=== PATIENT | male | born 1930 | race Caucasian/White ===

== ENCOUNTER 2016-07-21 15:04 | Outpatient (CLI) | payer MEDICARE | END 2016-07-21 15:05 | disposition home or self-care (01) | DX: I48.91 Unspecified atrial fibrillation (principal) ==

== ENCOUNTER 2016-08-03 12:45 | Outpatient (CLI) | payer MEDICARE | END 2016-08-03 12:46 | disposition home or self-care (01) | DX: I48.2 Chronic atrial fibrillation (principal) ==

== ENCOUNTER 2016-08-27 14:37 | Outpatient (CLI) | payer MEDICARE | END 2016-08-27 14:38 | disposition home or self-care (01) | DX: I48.2 Chronic atrial fibrillation (principal) ==

== ENCOUNTER 2016-09-23 14:52 | Outpatient (CLI) | payer MEDICARE | END 2016-09-23 14:53 | disposition home or self-care (01) | DX: I48.2 Chronic atrial fibrillation (principal) ==

== ENCOUNTER 2016-10-07 14:20 | Outpatient (CLI) | payer MEDICARE | END 2016-10-07 14:21 | disposition home or self-care (01) | DX: I48.2 Chronic atrial fibrillation (principal) ==

== ENCOUNTER 2016-10-08 14:58 | Outpatient (CLI) | payer MEDICARE | END 2016-10-08 14:59 | disposition home or self-care (01) | DX: N18.3 Chronic kidney disease, stage 3 (moderate) (principal) ==

== ENCOUNTER 2016-10-28 08:00 | Outpatient (CLI) | payer MEDICARE | END 2016-10-28 08:01 | DX: I48.2 Chronic atrial fibrillation (principal) ==

== ENCOUNTER 2016-11-13 14:58 | Outpatient (CLI) | payer MEDICARE | END 2016-11-13 14:59 | disposition home or self-care (01) | DX: I48.2 Chronic atrial fibrillation (principal) ==

== ENCOUNTER 2016-12-26 17:30 | Inpatient (IN) | payer MEDICARE ==
[2016-12-26] MEDS ORDERED: SODIUM CHLORIDE 0.9% 500 ML IV ONE (17:52)
[2016-12-26] MEDS ORDERED: SODIUM CHLORIDE 0.9% 1,000 ML IV ONE (17:52)
--- NOTE | 2016-12-26 17:54 | ED Physician Documentation ---
History of Present Illness - Stated complaint Stated Complaint: COUGHING BLOOD - Chief complaint Chief Complaint: General - History obtained from History obtained from: Patient, Family - History of Present Illness Timing: How many days ago (3) Pain level max: 0 Pain level now: 0 Improved by: nothing Worsened by: nothing - Additonal information Additional information: Patient is an 86-year-old male who presents to the emergency department with a cough for the past 3 days. Increasing coughing over the past 24 hours. The last couple of times he coughed he has noticed a small amount of blood in the sputum. He is on warfarin for atrial fibrillation. Last INR check was approximately 3 weeks ago. It was 2.1 at that time. He states he has felt warm and intermittently chilled. He believes that this is related to milk that he drank 3 days ago. Has not had any diarrhea. Did vomit once. Review of Systems Ten Systems: 10 systems reviewed and negative Constitutional: reports: Chills Ears: denies: Ear pain Nose: reports: Rhinorrhea / runny nose, Congestion Throat: denies: Sore throat Respiratory: reports: Cough, Hemoptysis GI: denies: Constipation, Diarrhea, Hematemesis, Bloody / black stool : denies: Dysuria Skin: denies: Rash Musculoskeletal: denies: Neck pain, Back pain Neurologic: denies: Headache PD PAST MEDICAL HISTORY - Past Medical History Past Medical History: Yes Cardiovascular: PR, Atrial fibrillation Endocrine/Autoimmune: HyPOthyroidism - Present Medications Home Medications: Ambulatory Orders Medication Instructions Recorded Confirmed Levothyroxine [Synthroid] 0 mcg PO DAILY 08/21/13 02/14/14 Metoprolol Succinate [Toprol Xl] 0 mg PO TID 08/21/13 02/14/14 Atorvastatin [Lipitor] 5 mg PO DAILY 02/14/14 02/14/14 Warfarin [Coumadin] 5 mg PO DAILY 02/14/14 02/14/14 Allopurinol [Aloprim] 0 mg PO 12/26/16 Famotidine [Pepcid] 1 tab PO DAILY 12/26/16 12/26/16 - Allergies Allergies/Adverse Reactions: Allergies Allergy/AdvReac Type Severity Reaction Status Date / Time amoxicillin [Amoxicillin] AdvReac Intermediate diarrhea Verified 12/26/16 17:39 - Social History Does the pt smoke?: No Smoking Status: Never smoker Does the pt drink ETOH?: No Does the pt have substance abuse?: No - Immunizations Immunizations are current?: Yes PD ED PE NORMAL - Vitals Vital signs reviewed: Yes - General General: Alert and oriented X 3, Well developed/nourished - HEENT HEENT: PERRL, Moist mucous membranes - Neck Neck: Supple, no meningeal sign - Cardiac Cardiac: Other (Irregularly irregular) - Respiratory Respiratory: No respiratory distress, Other (Rhonchi bilaterally) - Abdomen Abdomen: Soft, Non tender, Non distended - Derm Derm: Warm and dry - Extremities Extremities: No edema, No calf tenderness / cord - Neuro Neuro: Alert and oriented X 3 - Psych Psych: Normal mood, Normal affect Results - Vitals Vitals: Vital Signs - 24 hr 12/26/16 17:36 Temperature 35.9 C L Heart Rate 117 H Respiratory 22 Rate Blood Pressure 121/79 O2 Saturation 90 L Oxygen O2 Source Room air - Labs Labs: Laboratory Tests 12/26/16 12/26/16 12/26/16 18:00 18:00 18:00 WBC 17.9 H RBC 4.71 Hgb 12.9 L Hct 39.2 L MCV 83.4 MCH 27.5 MCHC 32.9 RDW 13.9 Plt Count 144 MPV 6.8 L Neut # 10.6 H Lymph # 2.3 Pepin # 4.7 H Eos # 0.2 Baso # 0.2 H Absolute Nucleated RBC 0.00 Nucleated RBCs 0.0 Manual Slide Review Indicated WBC Morphology NORMAL W/ INC MONOS Platelet Estimate NORMAL (130-450,000) Platelet Morphology NORMAL APPEARANCE RBC Morph Micro Appear NORMAL APPEARANCE PT 31.9 H INR 2.8 H APTT 35.9 H Sodium 133 L Potassium 4.6 Chloride 107 Carbon Dioxide 18 L Anion Gap 8.0 BUN 50 H Creatinine 2.7 H Estimated GFR (MDRD) 23 L Glucose 107 H Lactic Acid Calcium 9.1 Total Bilirubin 1.5 H AST 40 ALT 22 Alkaline Phosphatase 58 Total Creatine Kinase CK-MB (CK-2) Troponin I B-Natriuretic Peptide Total Protein 7.1 Albumin 3.5 Globulin 3.6 Albumin/Globulin Ratio 1.0 Lipase 22 Urine Color Urine Clarity Urine pH Ur Specific Fischer Urine Protein Urine Glucose (UA) Urine Ketones Urine Occult Blood Urine Nitrite Urine Bilirubin Urine Urobilinogen Ur Leukocyte Esterase Urine RBC Urine WBC Ur Squamous Epith Cells Urine Bacteria Ur Microscopic Review Urine Culture Comments 12/26/16 12/26/16 12/26/16 18:00 18:00 18:00 WBC RBC Hgb Hct MCV MCH MCHC RDW Plt Count MPV Neut # Lymph # Pepin # Eos # Baso # Absolute Nucleated RBC Nucleated RBCs Manual Slide Review WBC Morphology Platelet Estimate Platelet Morphology RBC Morph Micro Appear PT INR APTT Sodium Potassium Chloride Carbon Dioxide Anion Gap BUN Creatinine Estimated GFR (MDRD) Glucose Lactic Acid Calcium Total Bilirubin AST ALT Alkaline Phosphatase Total Creatine Kinase 606 H CK-MB (CK-2) 21.8 H Troponin I < 0.04 B-Natriuretic Peptide 340 H Total Protein Albumin Globulin Albumin/Globulin Ratio Lipase Urine Color Urine Clarity Urine pH Ur Specific Fischer Urine Protein Urine Glucose (UA) Urine Ketones Urine Occult Blood Urine Nitrite Urine Bilirubin Urine Urobilinogen Ur Leukocyte Esterase Urine RBC Urine WBC Ur Squamous Epith Cells Urine Bacteria Ur Microscopic Review Urine Culture Comments 12/26/16 12/26/16 18:50 18:50 WBC RBC Hgb Hct MCV MCH MCHC RDW Plt Count MPV Neut # Lymph # Pepin # Eos # Baso # Absolute Nucleated RBC Nucleated RBCs Manual Slide Review WBC Morphology Platelet Estimate Platelet Morphology RBC Morph Micro Appear PT INR APTT Sodium Potassium Chloride Carbon Dioxide Anion Gap BUN Creatinine Estimated GFR (MDRD) Glucose Lactic Acid 1.6 Calcium Total Bilirubin AST ALT Alkaline Phosphatase Total Creatine Kinase CK-MB (CK-2) Troponin I B-Natriuretic Peptide Total Protein Albumin Globulin Albumin/Globulin Ratio Lipase Urine Color YELLOW Urine Clarity CLEAR Urine pH 5.5 Ur Specific Fischer 1.010 Urine Protein TRACE Urine Glucose (UA) NEGATIVE Urine Ketones NEGATIVE Urine Occult Blood MODERATE H Urine Nitrite NEGATIVE Urine Bilirubin NEGATIVE Urine Urobilinogen 0.2 (NORMAL) Ur Leukocyte Esterase NEGATIVE Urine RBC 0-5 Urine WBC 0-3 Ur Squamous Epith Cells RARE Squamous Urine Bacteria Rare Ur Microscopic Review INDICATED Urine Culture Comments NOT INDICATED - Rads (name of study) cxr Radiology: Prelim report reviewed, EMP read contemporaneously, See rad report ( Extensive chronic pleural and diaphragmatic changes likely prior asbestos exposure. New left greater than right basilar airspace disease and small pleural effusions. Suggest follow-up to complete radiographic clearing. ) PD MEDICAL DECISION MAKING - ED course Complexity details: reviewed results, re-evaluated patient, considered differential, d/w patient, d/w family ED course: Patient is an 86-year-old gentleman who presents to the emergency department with what appears to be bilateral pneumonia and early sepsis. Given Rocephin, azithromycin. Given IV fluids. We will admit the patient for further evaluation and care. Discussed the case with the hospitalist, Dr. Moncada, who accepts the patient. This document was made in part using voice recognition software. While efforts are made to proofread this document, sound alike and grammatical errors may occur. Departure - Departure Disposition: 66 [facility] DC/Xfer Clinical Impression: Hypoxia, Atrial fibrillation with RVR Sepsis Qualifiers: Sepsis type: sepsis due to unspecified organism Qualified Code(s): A41.9 - Sepsis, unspecified organism Pneumonia Qualifiers: Pneumonia type: due to unspecified organism Laterality: bilateral Lung location : unspecified part of lung Qualified Code(s): J18.9 - Pneumonia, unspecified organism Condition: Stable Discharge Date/Time: 12/26/16 19:46
[2016-12-26 18:05] LABS: BASOPHILS # (AUTO) 0.2 10^3/uL (0.0-0.1); BASOPHILS % (AUTO) 0.9 %; EOSINOPHILS # (AUTO) 0.2 10^3/uL (0.0-0.7); EOSINOPHILS % (AUTO) 1.2 %; HCT - HEMATOCRIT 39.2 % (42.0-52.0); HGB - HEMOGLOBIN 12.9 g/dL (14.0-18.0); LYMPHOCYTES # (AUTO) 2.3 10^3/uL (1.5-3.5); LYMPHOCYTES % (AUTO) 12.7 %; MEAN CORPUSCULAR HEMOGLOBIN 27.5 pg (27.0-31.0); MEAN CORPUSCULAR HGB CONC 32.9 g/dL (32.0-36.0); MEAN CORPUSCULAR VOLUME 83.4 fL (80.0-94.0); MEAN PLATELET VOLUME 6.8 fL (7.4-11.4); MONOCYTES # (AUTO) 4.7 10^3/uL (0.0-1.0); NEUTROPHILS # (AUTO) 10.6 10^3/uL (1.5-6.6); NEUTROPHILS % (AUTO) 59.2 %; RED BLOOD COUNT 4.71 10^6/uL (4.70-6.10); RED CELL DISTRIBUTION WIDTH 13.9 % (12.0-15.0); UNCORRECTED WHITE BLOOD COUNT 17.9 x10^3/uL; WHITE BLOOD COUNT 17.9 x10^3/uL (4.8-10.8)
[2016-12-26 18:16] LABS: BILIRUBIN,TOTAL 1.5 mg/dL (0.2-1.0); CALCIUM 9.1 mg/dL (8.5-10.3); CREATININE 2.7 mg/dL (0.6-1.2); POTASSIUM 4.6 mmol/L (3.5-5.0); TOTAL PROTEIN 7.1 g/dL (6.7-8.2)
[2016-12-26] MEDS ORDERED: cefTRIAXone 1 GM in SODIUM CHLORIDE 0.9% MINIBAG 100 ML IV STA (18:23)
[2016-12-26] MEDS ORDERED: AZITHROMYCIN INJ 500 MG in SODIUM CHLORIDE 0.9% 250 ML IV STA (18:24)
[2016-12-26] MEDS ORDERED: cefTRIAXone 1 GM VIAL ONE (18:29)
--- NOTE | 2016-12-26 18:34 | XRAY Preliminary Report ---
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 New left greater than right basilar airspace disease and small pleural effusions. Suggest follow-up to co mplete radiographic clearing. [facility] SITE ID: [id number]
--- NOTE | 2016-12-26 18:36 | XRAY Report ---
EXAM: CHEST RADIOGRAPHY EXAM DATE: 12/26/2016 06:18 PM. CLINICAL HISTORY: Cough, hemoptysis. COMPARISON: 08/21/2013 TECHNIQUE: 2 views. FINDINGS: Lungs/Pleura: Extensive pleural plaque and diaphragmatic calcifications similar to prior, likely asbe stos related. Increased retrocardiac density suspicious for superimposed acute air space disease. Pot ential right CP angle airspace disease as well. No pneumothorax. Small posterior pleural effusions. Mediastinum: Heart and mediastinal contours are unremarkable. Calcification in the aortic arch. Other: Degenerative change in the spine. 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 New left greater than right basilar airspace disease and small pleural effusions. Suggest follow-up to co mplete radiographic clearing. [facility] Referring Provider Line: [phone] SITE ID: [id number]
[2016-12-26 18:45] LABS: PLATELET ESTIMATE, MANUAL NORMAL (130-450,000) (NORMAL); PLATELET MORPHOLOGY NORMAL APPEARANCE (NORMAL)
[2016-12-26 18:46] LABS: WBC MORPHOLOGY (MULTIPLE) NORMAL W/ INC MONOS (NORMAL)
[2016-12-26 18:58] LABS: BILIRUBIN,URINE NEGATIVE (NEGATIVE); PH,URINE 5.5 PH (5.0-7.5)
[2016-12-26 19:04] LABS: UA w/ MICROSCOPIC CHARGE YES
[2016-12-26 19:04] LABS: INR 2.8 (0.8-1.2); PT - PROTHROMBIN TIME 31.9 secs (9.9-12.6)
[2016-12-26 19:05] LABS: UR CULTURE IF IND NOT INDICATED; WBC,URINE 0-3 /HPF (0-3)
[2016-12-26] MEDS ORDERED: METOPROLOL 5 MG/5 ML VIAL IVP SCH (19:10)
[2016-12-26 19:11] LABS: PARTIAL THROMBOPLASTIN TIME 35.9 secs (24.9-33.3)
[2016-12-26 19:13] LABS: TROPONIN I < 0.04 ng/mL (<0.49)
[2016-12-26] MEDS ORDERED: SODIUM CHLORIDE FLUSH 0.9% 10 ML SYRINGE IVP PRN (19:13)
[2016-12-26] MEDS ORDERED: LEVALBUTEROL 1.25 MG INH PRN (19:13)
[2016-12-26 19:15] LABS: CREATINE KINASE MB 21.8 ng/mL (0.6-6.3)
[2016-12-26] MEDS ORDERED: ACETAMINOPHEN 325 MG TABLET PO PRN (19:20)
[2016-12-26] MEDS ORDERED: ONDANSETRON 4 MG/2 ML VIAL IVP PRN (19:21)
--- NOTE | 2016-12-26 20:30 | HISTORY & PHYSICAL EXAMINATION ---
DATE OF ADMISSION: 12/26/2016 CHIEF COMPLAINT: Cough and hemoptysis. HISTORY OF PRESENT ILLNESS: The patient is an 86-year-old white male who is getting admitted with the above chief complaint. He presented from home, was accompanied to the ER by his . The patient was a good historian and reported eating some rice and milk 3 days ago, on Wednesday, after which he felt congestion in his throat. Subsequently, he became weak and tired and developed a cough. He had been coughing for the past 3 days and subsequently developed phlegm in his throat. On the day of admission, he experienced hemoptysis 5 times. Therefore, he came to the ER for evaluation. In addition, he noticed that during the past couple of days his breathing was fast and somewhat labored. He felt especially labored with his breathing when he laid flat. He denied fever or chest pain. On further interview, the patient reports that he has history of esophageal stricture and has difficulty swallowing occasionally. The way he describes it, he has had to have food removed from his throat several times in the past. When I asked him; however, he reported that he did not aspirate 3 days ago. It was just a feeling of congestion in his throat. He also tells me that he has this feeling of congestion in his throat often since he was intubated 8 or 9 years ago. The patient also confirms having history of coronary artery disease, he was seen at [facility] several years ago with chest pain. At that time he had acute coronary syndrome and was transferred to the [facility]. At [facility], he underwent a stress test which showed low risk for reversible ischemia. Therefore, he was not further evaluated given the fact that he has advanced kidney disease and coronary angiogram would have been more risk than benefit. In any case, the patient tells me that he does see a medical logistics specialist and he had a visit 6 months ago, was told that his heart "was all right". Notably, he has atrial fibrillation for which he takes diltiazem and metoprolol for rate control and he also takes Coumadin for anticoagulation. Upon presentation to the ER, the patient was found with septic physiology. Heart rate was 120. Monitor showed AFib with RVR, but no EKG was yet done. Blood pressure was 120/70. Oxygen saturation was 90% on room air, respiration rate was in the mid 20s. Creatinine was 2.7. Of note, the patient has advanced kidney disease and baseline creatinine is around 2. He had elevated white blood cell count 17.9. Chest x-ray showed chronic abnormalities including pleural plaques and calcification consistent with possible history of asbestos exposure. In addition, there were bibasilar infiltrates and questionable small pleural effusions. PAST MEDICAL HISTORY 1. Dyslipidemia. 2. Coronary artery disease. 3. Atrial fibrillation, on Coumadin anticoagulation. 4. Depression. 5. Hypothyroidism. 6. History of colon polyp, which was removed, was found precancerous, subsequently the patient underwent partial colectomy. 7. History of respiratory failure and ARDS for which the patient was intubated about 8 or 9 years ago. 8. Chronic kidney disease. 9. Right lower extremity neuropathy. 10. Esophageal stricture/dysphagia. OUTPATIENT MEDICATIONS: Medication reconciliation is pending. SOCIAL HISTORY: The patient is a nonsmoker, nondrinker. He ambulates with a cane. He lives at his home with his . 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 FAMILY HISTORY: Negative for coronary artery disease. REVIEW OF SYSTEMS: Please see pertinent positive listed in history of present illness. The patient reported no further complaints on the 12-point review. CODE STATUS: FULL CODE. PHYSICAL EXAMINATION VITAL SIGNS: Please see listed above and history of present illness. GENERAL: The patient is a well-developed elderly male, who could speak in full sentences, was not in distress. SKIN: No jaundice. No pallor. EXTREMITIES: Right lower extremity more swollen than the left, the patient stating that this is a chronic abnormality. MUSCULOSKELETAL: Atraumatic. LYMPHS: Right lower extremity edema. ABDOMEN: Soft, benign, nontender, normal bowel tones. RESPIRATORY: A few crackles posteriorly with decreased air entry above the bases. Slightly increased work of breathing. CARDIAC: S1, S2, irregularly irregular fast rate. I could not hear murmur. NEUROLOGIC: Alert, oriented, nonfocal. PSYCH: Cooperative. Diagnostic workup revealed per ER record. ASSESSMENT/ACTIVE ISSUES/DIAGNOSES 1. Sepsis/systemic inflammatory response. The patient rules in for this diagnosis based on vital signs including tachycardia, hypoxia, and laboratory abnormalities such as leukocytosis, source of infection being pneumonia. 2. Community-acquired pneumonia versus aspiration. The patient has history of esophageal stricture and dysphagia. He has aspiration risk. 3. Pleural effusions and cardiac decompensation with atrial fibrillation and rapid ventricular rate. The patient might have congestive heart failure exacerbation. At least he has diastolic dysfunction due to atrial fibrillation and rapid ventricular rate. There is no information in our medical system whether he does have history of systolic dysfunction as well. 4. High risk to rule in for acute coronary syndrome in the setting of underlying coronary artery disease, atrial fibrillation, and now with hemodynamic stress caused by pneumonia. 5. Chronic renal insufficiency with worsening renal function, acute component is in the setting of sepsis. PLAN ORDERS 1. The patient is getting admitted to the medical floor. Will be treated for pneumonia with Unasyn. 2. Acidophilus for bowel prophylaxis. 3. Supportive care with bronchodilators. 4. We will control the heart rate with 1 IV dose of metoprolol to avoid further rapid rate and worsening congestive heart failure. Of note, the patient is 86 years old, and a heart rate of 120 is quite high for him. 5. Will rule out acute coronary syndrome, checking an EKG and cardiac markers. 6. Will add BNP to the workup and an echocardiogram as well. 7. Regarding the patient's swollen right lower extremity, I will also add ultrasound of that extremity. 8. Regarding the complain of hemoptysis, this could be in the setting of pneumonia plus/minus congestive heart failure. Pulmonary embolism is less likely as the patient has a therapeutic INR, on Coumadin anticoagulation. 9. Will continue with aspiration precautions, will check swallow evaluation. In the meantime, we will continue with dysphagia diet. 10. Continue Coumadin per INR. 11. Awaiting medication reconciliation, will continue cardiac medications including metoprolol and diltiazem for rate control. Time spent in the care of this patient was 60 minutes. JOB #: [id number] EXT JOB #:[id number] [facility]
[2016-12-26] MEDS: AMPICILLIN/SULBACTAM 1.5 GM in SODIUM CHLORIDE 0.9% MINIBAG 100 ML IV SCH ×2 (20:36→20:39)
[2016-12-26] MEDS ORDERED: METOPROLOL TARTRATE 50 MG TABLET PO SCH ×2 (21:00→22:30)
[2016-12-26] MEDS: SODIUM CHLORIDE FLUSH 0.9% 10 ML SYRINGE IVP SCH (21:11)
[2016-12-26] MEDS: diltiaZEM CD 240 MG CAPSULE PO SCH (22:51)
[2016-12-26] MEDS: ATORVASTATIN 10 MG TABLET PO SCH (22:51)
[2016-12-26] MEDS: FAMOTIDINE 20 MG TABLET PO SCH (22:51)
[2016-12-26] MEDS: WARFARIN 5 MG TABLET PO SCH (22:51)
[2016-12-27] MEDS ORDERED: AMPICILLIN/SULBACTAM 1.5 GM in SODIUM CHLORIDE 0.9% MINIBAG 100 ML IV SCH ×2
[2016-12-27] MEDS: SODIUM CHLORIDE FLUSH 0.9% 10 ML SYRINGE IVP SCH ×3 (06:45→20:50)
[2016-12-27 08:03] LABS: BASOPHILS # (AUTO) 0.1 10^3/uL (0.0-0.1); BASOPHILS % (AUTO) 1.2 %; EOSINOPHILS # (AUTO) 0.4 10^3/uL (0.0-0.7); EOSINOPHILS % (AUTO) 3.2 %; HCT - HEMATOCRIT 37.5 % (42.0-52.0); HGB - HEMOGLOBIN 12.6 g/dL (14.0-18.0); LYMPHOCYTES # (AUTO) 1.6 10^3/uL (1.5-3.5); MEAN CORPUSCULAR HEMOGLOBIN 27.7 pg (27.0-31.0); MEAN CORPUSCULAR HGB CONC 33.4 g/dL (32.0-36.0); MEAN CORPUSCULAR VOLUME 82.9 fL (80.0-94.0); MEAN PLATELET VOLUME 6.6 fL (7.4-11.4); MONOCYTES # (AUTO) 2.6 10^3/uL (0.0-1.0); MONOCYTES % (AUTO) 21.6 %; NEUTROPHILS # (AUTO) 7.3 10^3/uL (1.5-6.6); RED BLOOD COUNT 4.53 10^6/uL (4.70-6.10); RED CELL DISTRIBUTION WIDTH 14.1 % (12.0-15.0)
[2016-12-27 08:11] LABS: CALCIUM 8.9 mg/dL (8.5-10.3); CREATININE 2.4 mg/dL (0.6-1.2); POTASSIUM 4.4 mmol/L (3.5-5.0)
[2016-12-27] MEDS: POLYETHYLENE GLYCOL 3350 17 GM PACKET PO SCH (08:28)
[2016-12-27] MEDS: diltiaZEM CD 240 MG CAPSULE PO SCH (08:29)
[2016-12-27] MEDS: LEVOTHYROXINE 25 MCG TABLET PO SCH (08:29)
[2016-12-27] MEDS: FAMOTIDINE 20 MG TABLET PO SCH (08:30)
[2016-12-27] MEDS: AMPICILLIN/SULBACTAM 1.5 GM in SODIUM CHLORIDE 0.9% MINIBAG 100 ML IV SCH ×2 (08:30→20:50)
[2016-12-27] MEDS: LACTOB/S.THERMOPHL/BIFIDO CAPSULE PO SCH ×2 (08:30→17:26)
[2016-12-27] MEDS: METOPROLOL TARTRATE 50 MG TABLET PO SCH ×3 (08:30→20:48)
[2016-12-27] MEDS ORDERED: FAMOTIDINE 20 MG TABLET PO SCH (09:00)
--- NOTE | 2016-12-27 09:17 | Ultrasound Preliminary Report ---
Exam: US Doppler Limited IMPRESSION: 1. No evidence of right lower extremity DVT. 2. Limited evaluation of the distal right femoral vein and posterior tibial veins. The peroneal veins could not be visualized. [facility] SITE ID: [id number]
--- NOTE | 2016-12-27 09:20 | Ultrasound Report ---
EXAM: RIGHT LOWER EXTREMITY VENOUS ULTRASOUND EXAM DATE: 12/27/2016 06:37 AM. CLINICAL HISTORY: Right lower extremity swelling, rule out DVT. COMPARISON: None. TECHNIQUE: Real-time sonographic vascular imaging was performed by the grocery clerk checking through the lower extremity utilizing both color-flow and Doppler spectral analysis. Multiple marketing development representative static hima ges were saved for review. FINDINGS: Common Femoral Vein (CFV): Normal. CFV-GSV Junction: Normal. Profunda Femoral Vein (PFV): Normal. Femoral Vein (FV) Prox: Normal. Femoral Vein (FV) Mid: Normal. Femoral Vein (FV) Dist: Evaluation is limited but no definite DVT. Popliteal Vein: Normal. Posterior Tibial Veins: Evaluation is limited but no definite DVT. Peroneal Veins: Could not be visualized. Other: None. IMPRESSION: 1. No evidence of right lower extremity DVT. 2. Limited evaluation of the distal right femoral vein and posterior tibial veins. The peroneal veins could not be visualized. [facility] Referring Provider Line: [phone] SITE ID: [id number]
[2016-12-27 10:43] LABS: PLATELET ESTIMATE, MANUAL NORMAL (130-450,000) (NORMAL); PLATELET MORPHOLOGY NORMAL APPEARANCE (NORMAL)
[2016-12-27] MEDS: WARFARIN 5 MG TABLET PO SCH (14:26)
[2016-12-27] MEDS: ATORVASTATIN 10 MG TABLET PO SCH (20:48)
[2016-12-28 05:54] LABS: BASOPHILS % (AUTO) 1.5 %; EOSINOPHILS % (AUTO) 5.6 %; HCT - HEMATOCRIT 37.8 % (42.0-52.0); HGB - HEMOGLOBIN 12.2 g/dL (14.0-18.0); LYMPHOCYTES % (AUTO) 16.5 %; MEAN CORPUSCULAR HEMOGLOBIN 27.4 pg (27.0-31.0); MEAN CORPUSCULAR HGB CONC 32.3 g/dL (32.0-36.0); MEAN CORPUSCULAR VOLUME 84.9 fL (80.0-94.0); MEAN PLATELET VOLUME 6.9 fL (7.4-11.4); MONOCYTES % (AUTO) 21.1 %; NEUTROPHILS % (AUTO) 55.3 %; RED BLOOD COUNT 4.45 10^6/uL (4.70-6.10); RED CELL DISTRIBUTION WIDTH 14.1 % (12.0-15.0); UNCORRECTED WHITE BLOOD COUNT 9.8 x10^3/uL; WHITE BLOOD COUNT 9.8 x10^3/uL (4.8-10.8)
[2016-12-28 05:59] LABS: CALCIUM 8.6 mg/dL (8.5-10.3); CREATININE 2.5 mg/dL (0.6-1.2); POTASSIUM 4.6 mmol/L (3.5-5.0)
[2016-12-28 06:00] LABS: BAND NEUTROPHILS % (MANUAL) 0 %
[2016-12-28 06:06] LABS: INR 3.1 (0.8-1.2)
[2016-12-28] MEDS: METOPROLOL TARTRATE 50 MG TABLET PO SCH ×3 (06:22→21:13)
[2016-12-28] MEDS: SODIUM CHLORIDE FLUSH 0.9% 10 ML SYRINGE IVP SCH ×3 (06:22→20:01)
[2016-12-28 06:48] LABS: EOSINOPHILS % (MANUAL) 6 %; LYMPHOCYTES % (MANUAL) 8 %; NEUTROPHILS % (MANUAL) 58 %; TOTAL CELLS COUNTED 100
[2016-12-28 06:49] LABS: NP AUTO DIFFERENTIAL? YES; NP MAN DIFFERENTIAL? NO; PLATELET ESTIMATE, MANUAL NORMAL (130-450,000) (NORMAL); PLATELET MORPHOLOGY NORMAL APPEARANCE (NORMAL)
[2016-12-28] MEDS: AMPICILLIN/SULBACTAM 1.5 GM in SODIUM CHLORIDE 0.9% MINIBAG 100 ML IV SCH ×2 (07:59→20:00)
[2016-12-28] MEDS: LACTOB/S.THERMOPHL/BIFIDO CAPSULE PO SCH ×2 (07:59→17:06)
[2016-12-28] MEDS: POLYETHYLENE GLYCOL 3350 17 GM PACKET PO SCH (08:00)
[2016-12-28] MEDS: LEVOTHYROXINE 25 MCG TABLET PO SCH (08:00)
[2016-12-28] MEDS: diltiaZEM CD 240 MG CAPSULE PO SCH (08:00)
[2016-12-28] MEDS: FAMOTIDINE 20 MG TABLET PO SCH (08:00)
[2016-12-28] MEDS: ALLOPURINOL 100 MG TABLET PO SCH (08:24)
--- NOTE | 2016-12-28 12:19 | PROVIDER PROGRESS NOTE ---
Assessment/Plan - Problem List (1) Atrial fibrillation with RVR Assessment/Plan: Magallanes RVR has resolved He is now rate controlled. Will continue the present meds. Probably was infection driven. (2) Pneumonia Qualifiers: Pneumonia type: due to unspecified organism Laterality: bilateral Lung location: unspecified part of lung Qualified Code(s): J18.9 - Pneumonia, unspecified organism Assessment/Plan: He has improved. He is using room air except at night. He may have sleep apnea. Recommend overnight O2 study. Will get CXR tomorrow am. Discharge likely for tomorrow. (3) Sepsis Qualifiers: Sepsis type: sepsis due to unspecified organism Qualified Code(s): A41.9 - Sepsis, unspecified organism Assessment/Plan: Sepsis has resolved. Source was the pneumonia. - Current Meds Current Meds: Current Medications Generic Name Dose Route Start Last Admin Trade Name Freq PRN Reason Stop Dose Admin Allopurinol 100 mg 12/28/16 09:00 12/28/16 08:24 Zyloprim PO 100 mg DAILY ARLEEN Administration Atorvastatin Calcium 10 mg 12/26/16 23:00 12/27/16 20:48 Lipitor PO 10 mg QPM ARLEEN Administration Diltiazem HCl 240 mg 12/26/16 23:00 12/28/16 08:00 Cardizem Cd PO 240 mg DAILY ARLEEN Administration Famotidine 20 mg 12/26/16 23:00 12/28/16 08:00 Pepcid PO 20 mg DAILY ARLEEN Administration Ampicillin Sodium/Sulbactam 100 mls @ 200 mls/hr 12/27/16 08:00 12/28/16 07:59 Sodium 1.5 gm/ Sodium Chloride IV 200 mls/hr Q12H ARLEEN Administration Lactobacil/Bifidobact/Streptococcus 1 cap 12/27/16 08:00 12/28/16 07:59 Vsl#3 PO 1 cap BIDWM ARLEEN Administration Levalbuterol HCl 1.25 mg 12/26/16 19:13 12/27/16 09:30 Xopenex INH 1.25 mg Q4HR PRN Administration Wheezing Levothyroxine Sodium 25 mcg 12/27/16 09:00 12/28/16 08:00 Synthroid PO 25 mcg DAILY ARLEEN Administration Metoprolol Tartrate 75 mg 12/27/16 09:00 12/28/16 06:22 Lopressor PO 75 mg TID ARLEEN Administration Polyethylene Glycol 17 gm 12/27/16 09:00 12/28/16 08:00 Miralax PO 17 gm DAILY ARLEEN Administration Sodium Chloride 10 ml 12/26/16 22:00 12/28/16 06:22 Normal Saline Flush 0.9% IVP 10 ml Q8HR ARLEEN Administration Warfarin Sodium 5 mg 12/26/16 23:00 12/27/16 14:26 Coumadin PO 5 mg QDWARFARIN ARLEEN Administration - Lab Result Fish Bone Diagrams: 12/28/16 05:35 12/28/16 05:35 - Additional Planning My Orders: My Active Orders 12/28/16 Lunch Regular Diet [DIET] 12/29/16 08:18 Chest 2 View PA/LAT [XR] ONCE Subjective - Subjective Patient Reports: Feeling Better, Resting Comfortably Nursing Reports: No Complaints Objective Vital Signs: Vital Signs - 24 hr 12/27/16 12/27/16 12/28/16 20:48 22:00 00:05 Temperature 36.6 C 37.2 C Heart Rate [ 91 Apical] Heart Rate [ 86 118 H Brachial] Respiratory 20 16 Rate Blood Pressure 113/67 Blood Pressure 109/67 [Left Brachial artery] Blood Pressure 98/62 [Right Brachial artery] O2 Saturation 93 94 12/28/16 12/28/16 12/28/16 06:21 06:22 08:18 Temperature 37.0 C Heart Rate [ 93 Apical] Heart Rate [ 99 Brachial] Respiratory 18 Rate Blood Pressure 118/73 Blood Pressure [Left Brachial artery] Blood Pressure 118/73 122/77 [Right Brachial artery] O2 Saturation 94 Oxygen O2 Source Room air I&O (Last 24 Hrs): Intake and Output Totals x24h 12/26/16 12/27/16 12/28/16 23:59 23:59 23:59 Intake Total 560 Balance 560 General: Alert, Oriented x3 HEENT: PERRLA, EOMI Neck: No JVD, No thyromegaly Neuro: Alert, Oriented Times 3 Cardiovascular: Regular rate, No murmurs Respiratory: Chest non-tender, No respiratory distress, Breath sounds nml Abdomen: Soft, No tenderness Extremities: No clubbing, No cyanosis, No edema - Results Results: Laboratory Results WBC 9.8 x10^3/uL (4.8-10.8) 12/28/16 05:35 RBC 4.45 10^6/uL (4.70-6.10) L 12/28/16 05:35 Hgb 12.2 g/dL (14.0-18.0) L 12/28/16 05:35 Hct 37.8 % (42.0-52.0) L 12/28/16 05:35 MCV 84.9 fL (80.0-94.0) 12/28/16 05:35 MCH 27.4 pg (27.0-31.0) 12/28/16 05:35 MCHC 32.3 g/dL (32.0-36.0) 12/28/16 05:35 RDW 14.1 % (12.0-15.0) 12/28/16 05:35 Plt Count 143 10^3/uL (130-450) 12/28/16 05:35 MPV 6.9 fL (7.4-11.4) L 12/28/16 05:35 Neut # Not Reportable 12/28/16 05:35 Lymph # Not Reportable 12/28/16 05:35 Lawrence # Not Reportable 12/28/16 05:35 Eos # Not Reportable 12/28/16 05:35 Baso # Not Reportable 12/28/16 05:35 Absolute Nucleated RBC Not Reportable 12/28/16 05:35 Total Counted 100 12/28/16 05:35 Band Neuts % (Manual) 0 % (0-10) 12/28/16 05:35 Reactive Lymphs % (Man) 12 % 12/28/16 05:35 Neutrophils # (Manual) 5.7 10^3/uL (1.5-6.6) 12/28/16 05:35 Lymphocytes # (Manual) 2.0 10^3/uL (1.5-3.5) 12/28/16 05:35 Monocytes # (Manual) 1.6 10^3/uL (0.0-1.0) H 12/28/16 05:35 Eosinophils # (Manual) 0.6 10^3/uL (0-0.7) 12/28/16 05:35 Nucleated RBCs Not Reportable 12/28/16 05:35 Differential Comment MANUAL DIFFERENTIAL 12/28/16 05:35 Manual Slide Review Indicated 12/27/16 07:52 WBC Morphology (NORMAL) 12/27/16 07:52 Platelet Estimate NORMAL (130-450,000) (NORMAL) 12/28/16 05:35 Platelet Morphology NORMAL APPEARANCE (NORMAL) 12/28/16 05:35 RBC Morph Micro Appear NORMAL APPEARANCE (NORMAL) 12/28/16 05:35 PT 35.0 secs (9.9-12.6) H 12/28/16 05:35 INR 3.1 (0.8-1.2) H 12/28/16 05:35 APTT 35.9 secs (24.9-33.3) H 12/26/16 18:00 Sodium 138 mmol/L (135-145) 12/28/16 05:35 Potassium 4.6 mmol/L (3.5-5.0) 12/28/16 05:35 Chloride 111 mmol/L (101-111) 12/28/16 05:35 Carbon Dioxide 21 mmol/L (21-32) 12/28/16 05:35 Anion Gap 6.0 (6-13) 12/28/16 05:35 BUN 44 mg/dL (6-20) H 12/28/16 05:35 Creatinine 2.5 mg/dL (0.6-1.2) H 12/28/16 05:35 Estimated GFR (MDRD) 25 (>89) L 12/28/16 05:35 Glucose 102 mg/dL (70-100) H 12/28/16 05:35 Lactic Acid 1.6 mmol/L (0.5-2.2) 12/26/16 18:50 Calcium 8.6 mg/dL (8.5-10.3) 12/28/16 05:35 Total Bilirubin 1.5 mg/dL (0.2-1.0) H 12/26/16 18:00 AST 40 IU/L (10-42) 12/26/16 18:00 ALT 22 IU/L (10-60) 12/26/16 18:00 Alkaline Phosphatase 58 IU/L (42-121) 12/26/16 18:00 Total Creatine Kinase 606 IU/L (22-269) H 12/26/16 18:00 CK-MB (CK-2) 21.8 ng/mL (0.6-6.3) H 12/26/16 18:00 Troponin I < 0.04 ng/mL (<0.49) 12/26/16 18:00 B-Natriuretic Peptide 340 pg/mL (5-100) H 12/26/16 18:00 Total Protein 7.1 g/dL (6.7-8.2) 12/26/16 18:00 Albumin 3.5 g/dL (3.2-5.5) 12/26/16 18:00 Globulin 3.6 g/dL (2.1-4.2) 12/26/16 18:00 Albumin/Globulin Ratio 1.0 (1.0-2.2) 12/26/16 18:00 Lipase 22 U/L (22-51) 12/26/16 18:00 Urine Color YELLOW 12/26/16 18:50 Urine Clarity CLEAR (CLEAR) 12/26/16 18:50 Urine pH 5.5 PH (5.0-7.5) 12/26/16 18:50 Ur Specific [place] 1.010 (1.002-1.030) 12/26/16 18:50 Urine Protein TRACE mg/dL (NEGATIVE) 12/26/16 18:50 Urine Glucose (UA) NEGATIVE mg/dL (NEGATIVE) 12/26/16 18:50 Urine Ketones NEGATIVE mg/dL (NEGATIVE) 12/26/16 18:50 Urine Occult Blood MODERATE (NEGATIVE) H 12/26/16 18:50 Urine Nitrite NEGATIVE (NEGATIVE) 12/26/16 18:50 Urine Bilirubin NEGATIVE (NEGATIVE) 12/26/16 18:50 Urine Urobilinogen 0.2 (NORMAL) E.U./dL (NORMAL) 12/26/16 18:50 Ur Leukocyte Esterase NEGATIVE (NEGATIVE) 12/26/16 18:50 Urine RBC 0-5 /HPF (0-5) 12/26/16 18:50 Urine WBC 0-3 /HPF (0-3) 12/26/16 18:50 Ur Squamous Epith Cells RARE Squamous (<= Few) 12/26/16 18:50 Urine Bacteria Rare /HPF (None Seen) 12/26/16 18:50 Ur Microscopic Review INDICATED 12/26/16 18:50 Urine Culture Comments NOT INDICATED 12/26/16 18:50
[2016-12-28] MEDS: WARFARIN 5 MG TABLET PO SCH (13:27)
[2016-12-28] MEDS ORDERED: SODIUM CHLORIDE INHALATION 3 ML NEB INH PRN (14:14)
[2016-12-28] MEDS: ATORVASTATIN 10 MG TABLET PO SCH (21:13)
[2016-12-29 04:58] VITALS: BP 117/73
[2016-12-29 06:12] LABS: BASOPHILS # (AUTO) 0.3 10^3/uL (0.0-0.1); BASOPHILS % (AUTO) 3.2 %; EOSINOPHILS # (AUTO) 0.6 10^3/uL (0.0-0.7); EOSINOPHILS % (AUTO) 6.1 %; HCT - HEMATOCRIT 38.3 % (42.0-52.0); HGB - HEMOGLOBIN 12.6 g/dL (14.0-18.0); LYMPHOCYTES # (AUTO) 1.5 10^3/uL (1.5-3.5); LYMPHOCYTES % (AUTO) 15.2 %; MEAN CORPUSCULAR HEMOGLOBIN 27.7 pg (27.0-31.0); MEAN CORPUSCULAR HGB CONC 32.9 g/dL (32.0-36.0); MEAN CORPUSCULAR VOLUME 84.3 fL (80.0-94.0); MONOCYTES # (AUTO) 1.5 10^3/uL (0.0-1.0); NEUTROPHILS # (AUTO) 5.9 10^3/uL (1.5-6.6); NEUTROPHILS % (AUTO) 60.5 %; RED BLOOD COUNT 4.55 10^6/uL (4.70-6.10); RED CELL DISTRIBUTION WIDTH 13.8 % (12.0-15.0); UNCORRECTED WHITE BLOOD COUNT 9.8 x10^3/uL; WHITE BLOOD COUNT 9.8 x10^3/uL (4.8-10.8)
[2016-12-29] MEDS: METOPROLOL TARTRATE 50 MG TABLET PO SCH (06:15)
[2016-12-29] MEDS: SODIUM CHLORIDE FLUSH 0.9% 10 ML SYRINGE IVP SCH (06:18)
[2016-12-29 06:20] LABS: INR 2.9 (0.8-1.2); PT - PROTHROMBIN TIME 33.5 secs (9.9-12.6)
[2016-12-29 06:25] LABS: CALCIUM 8.5 mg/dL (8.5-10.3); CREATININE 2.1 mg/dL (0.6-1.2); POTASSIUM 3.9 mmol/L (3.5-5.0)
[2016-12-29] MEDS ORDERED: LEVOTHYROXINE 25 MCG TABLET PO SCH (07:00)
[2016-12-29] MEDS: FAMOTIDINE 20 MG TABLET PO SCH (08:26)
[2016-12-29] MEDS: ALLOPURINOL 100 MG TABLET PO SCH (08:26)
[2016-12-29] MEDS: LACTOB/S.THERMOPHL/BIFIDO CAPSULE PO SCH (08:26)
[2016-12-29] MEDS: diltiaZEM CD 240 MG CAPSULE PO SCH (09:02)
[2016-12-29] MEDS: AMPICILLIN/SULBACTAM 1.5 GM in SODIUM CHLORIDE 0.9% MINIBAG 100 ML IV SCH (09:02)
[2016-12-29] MEDS: POLYETHYLENE GLYCOL 3350 17 GM PACKET PO SCH (09:03)
--- NOTE | 2016-12-29 09:09 | XRAY Report ---
TWO-VIEW CHEST: 12/29/2016 CLINICAL INDICATION: Followup infiltrates. COMPARISON: 12/26/2016, 08/21/2013 FINDINGS: Frontal and lateral views of the chest demonstrate improving basilar infiltrates. Trace e ffusions persist. Extensive pleural calcifications and chronic lung disease are stable. IMPRESSION: IMPROVING BASILAR INFILTRATES. JOB #: [id number] EXT JOB #:[id number]
--- NOTE | 2016-12-29 09:15 | Discharge Plan ---
Discharge Plan Disposition: 01 Home, Self Care Condition: Fair Prescriptions: Amox/Clav 875/125 [Augmentin] 1 tab PO Q12H #8 tablet Diet: Low Sodium Activity Restrictions: Activity as Tolerated Shower Restrictions: No Driving Restrictions: No Assistance Devices: Walker, Cane Weight Bearing: Full Weight Additional Instructions or Follow Up instructions: You presented to the emergency room with sepsis and were found to have a pneumonia. You were treated with IV antibiotics with which you have improved significantly. Your repeat chest xray looks much better. You will need to continue oral antibiotics for 4 more days to complete treatment for pneumonia. Please follow up with your PCP. No Smoking: If you smoke, Please STOP! Call for help.
--- NOTE | 2016-12-30 10:44 | DISCHARGE SUMMARY ---
DATE OF ADMISSION: 12/27/2016 DATE OF DISCHARGE: 12/29/2016 PRIMARY CARE PROVIDER: Cindy Zavala MD. DISCHARGING PHYSICIAN: Deangelo Santacruz MD. DISCHARGE DIAGNOSES: 1. Sepsis. 2. Community acquired pneumonia/aspiration pneumonia. 3. Pleural effusions. 4. Atrial fibrillation with rapid ventricular rate. 5. Chronic kidney disease. 6. Hypothyroidism. 7. Hyperlipidemia. DISCHARGE MEDICATIONS 1. Coumadin 2.5 mg p.o. q. Wednesday and Wednesday, and 5 mg p.o. q. Wednesday, Wednesday, Wednesday, , Wednesday. 2. Nitroglycerin 0.4 mg sublingual q. 5 minutes p.r.n. for chest pain. 3. Synthroid 100 mcg p.o. daily. 4. Lipitor 10 mg p.o. q. p.m. 5. Pepcid 20 mg p.o. daily. 6. Lopressor 75 mg p.o. t.i.d. 7. Allopurinol 100 mg p.o. daily. 8. Diltiazem ER 240 mg p.o. daily. 9. Augmentin 875/125 mg 1 tablet p.o. b.i.d. x4 days. HOSPITAL COURSE: The patient is a very pleasant 86-year-old gentleman with a past medical history sig nificant for coronary artery disease, atrial fibrillation on Coumadin, hypothyroidism, hyperlipidemia , chronic kidney disease, and history of esophageal strictures who presented to the emergency departm ent with a chief complaint of cough and hemoptysis. The patient on presentation was tachycardic, hypo xic, with leukocytosis and found to have pneumonia. The patient was admitted for sepsis with communit y acquired pneumonia. The patient was treated with IV Unasyn with which he showed significant improve ment over the next several days. The patient was also given supplemental oxygen and bronchodilators f or support. The patient had improved significantly, was on room air, was able to walk the room withou t significant shortness of air. His coughing had improved. He had no further hemoptysis. The patient was discharged to home with cane and walker on 12/29/2016. He was placed on Augmentin to complete a 7 -day course with 4 additional days of Augmentin. The patient was also told to follow up with his [facility] physician within the next couple of weeks. PHYSICAL EXAMINATION AT DISCHARGE: VITAL SIGNS: Temperature 36.4, heart rate 85, blood pressure 117/73. Respiratory rate 20, O2 saturati on 93% on room air. GENERAL: The patient does not appear to be in any acute distress. He is resting comfortably. He is al ert, able to answer all my questions appropriately. HEENT: Pupils are equal and reactive to light. Extraocular muscles are intact. Mucous membranes are m oist. There is no conjunctival pallor or scleral icterus noted. NECK: Supple. No thyromegaly. No JVD. Trachea is midline. LYMPH NODES: There is no cervical or axillary lymphadenopathy noted. CARDIOVASCULAR: S1, S2, irregularly irregular rhythm. No murmurs, rubs, or gallops. LUNGS: There is some mild right sided rhonchi with no wheezing, no crackles. The patient is not in an y respiratory distress or using any accessory muscles of breathing. ABDOMEN: Soft, nontender, nondistended. Bowel sounds are present in all 4 quadrants. EXTREMITIES: There is no lower extremity edema. Peripheral pulses are palpable. There is no cyanosis or clubbing. SKIN: No skin rashes, lesions, cellulitis or abscesses. NEURO: The patient is alert, oriented x3. Cranial nerves 2 through 12 grossly intact. Strength is ramy ssly normal. Sensations are intact. LABORATORY: WBC 9.8, hemoglobin 12.6, hematocrit 38.3, platelet count 156, INR 2.9, sodium 136, potas sium 3.9, chloride 108, carbon dioxide 19, BUN 34, creatinine 2.1, glucose 138, lactic acid 1.6, calc ium 8.5. Urinalysis negative. 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 New left greater than right basilar air space disease and small pleural ef fusions. Would suggest followup to complete radiographic clearing. Chest x-ray 12/29/2016 impression: Improving basilar infiltrates. DOPPLER STUDY ULTRASOUND, IMPRESSION: No evidence of right lower extremity DVT. Too limited evaluatio n of distal right femoral vein and posterior tibial veins. The peroneal vein could not be visualized. FOLLOWUP/RECOMMENDATIONS: The patient is being discharged to home after being treated for community a cquired pneumonia and sepsis. The patient is significantly improved and discharged home on oral antib iotics with Augmentin. He is to complete 4 more days of antibiotics. The patient will followup with h is primary care physician within the next several weeks. Greater than 30 minutes were spent on discharge. JOB #: [id number] EXT JOB #:[id number]
== END 2016-12-29 11:35 | disposition home or self-care (01) | DRG 871 ==
LOC: ED 17:30 → MS 19:13 → OBSVTOIN 12-27 18:53
PROVIDERS: ADMIT Internal Medicine; ATTEND Internal Medicine
DX: A41.9 Sepsis, unspecified organism (principal); J18.9 Pneumonia, unspecified organism; I48.91 Unspecified atrial fibrillation; R04.2 Hemoptysis; N18.9 Chronic kidney disease, unspecified; E03.9 Hypothyroidism, unspecified; R13.10 Dysphagia, unspecified; I51.89 Other ill-defined heart diseases; R60.0 Localized edema; E78.5 Hyperlipidemia, unspecified; R09.02 Hypoxemia; I25.2 Old myocardial infarction; I25.10 Atherosclerotic heart disease of native coronary artery without angina pectoris; K22.2 Esophageal obstruction; F32.9 Major depressive disorder, single episode, unspecified; G62.9 Polyneuropathy, unspecified; Z79.01 Long term (current) use of anticoagulants; Z87.19 Personal history of other diseases of the digestive system; Z86.010 Personal history of colon polyps; Z90.49 Acquired absence of other specified parts of digestive tract; Z87.09 Personal history of other diseases of the respiratory system; Z77.090 Contact with and (suspected) exposure to asbestos
CPT/HCPCS: 36415; 71020; 80048; 80053; 81001; 81003; 82550; 82553; 83605; 83690; 83880; 84484; 85025; 85610; 85730; 87040; 87070; 87086; 87205; 93005; 93306; 93976; 94640; 96361; 96365; 96366; 96374; 96375; 99283; 99285

== ENCOUNTER 2017-01-06 11:12 | Outpatient (CLI) | payer MEDICARE | END 2017-01-06 11:13 | disposition home or self-care (01) | LOC: LAB.F 11:12 | PROVIDERS: ATTEND Internal Medicine | DX: I48.2 Chronic atrial fibrillation (principal) | CPT/HCPCS: 85610 ==

== ENCOUNTER 2017-03-15 11:11 | Outpatient (CLI) | payer MEDICARE | END 2017-03-15 11:12 | disposition home or self-care (01) | LOC: LAB.F 11:11 | PROVIDERS: ATTEND Internal Medicine | DX: I48.2 Chronic atrial fibrillation (principal) | CPT/HCPCS: 85610 ==

== ENCOUNTER 2017-04-05 13:23 | Outpatient (CLI) | payer MEDICARE | END 2017-04-05 13:24 | disposition home or self-care (01) | LOC: LAB.F 13:23 | PROVIDERS: ATTEND Internal Medicine | DX: I48.2 Chronic atrial fibrillation (principal) | CPT/HCPCS: 85610 ==

== ENCOUNTER 2017-05-03 14:54 | Outpatient (CLI) | payer MEDICARE | END 2017-05-03 14:55 | disposition home or self-care (01) | LOC: LAB.F 14:54 | PROVIDERS: ATTEND Internal Medicine | DX: I48.2 Chronic atrial fibrillation (principal) | CPT/HCPCS: 85610 ==

== ENCOUNTER 2017-06-02 08:00 | Outpatient (CLI) | payer MEDICARE | END 2017-06-02 08:01 | disposition home or self-care (01) | LOC: LAB.F 08:00 | PROVIDERS: ATTEND Internal Medicine | DX: I48.2 Chronic atrial fibrillation (principal) | CPT/HCPCS: 85610 ==

== ENCOUNTER 2017-06-23 14:51 | Outpatient (CLI) | payer MEDICARE | END 2017-06-23 14:52 | disposition home or self-care (01) | LOC: LAB.F 14:51 | PROVIDERS: ATTEND Internal Medicine | DX: I48.2 Chronic atrial fibrillation (principal) | CPT/HCPCS: 85610 ==

== ENCOUNTER 2017-07-22 15:16 | Outpatient (CLI) | payer MEDICARE | END 2017-07-22 15:17 | disposition home or self-care (01) | LOC: LAB.F 15:16 | PROVIDERS: ATTEND Internal Medicine | DX: I48.2 Chronic atrial fibrillation (principal) | CPT/HCPCS: 85610 ==

== ENCOUNTER 2017-08-05 14:18 | Outpatient (CLI) | payer MEDICARE | END 2017-08-05 14:19 | disposition home or self-care (01) | LOC: LAB.F 14:18 | PROVIDERS: ATTEND Internal Medicine | DX: I48.2 Chronic atrial fibrillation (principal) | CPT/HCPCS: 85610 ==

== ENCOUNTER 2017-08-31 14:52 | Outpatient (CLI) | payer MEDICARE | END 2017-08-31 14:53 | disposition home or self-care (01) | LOC: LAB.F 14:52 | PROVIDERS: ATTEND Internal Medicine | DX: I48.2 Chronic atrial fibrillation (principal) | CPT/HCPCS: 85610 ==

== ENCOUNTER 2017-09-22 14:38 | Outpatient (CLI) | payer MEDICARE | END 2017-09-22 14:39 | disposition home or self-care (01) | LOC: LAB.F 14:38 | PROVIDERS: ATTEND Internal Medicine | DX: I48.2 Chronic atrial fibrillation (principal) | CPT/HCPCS: 85610 ==

== ENCOUNTER 2017-10-07 10:38 | Outpatient (CLI) | payer MEDICARE ==
[2017-10-07 18:21] LABS: ALBUMIN 3.6 g/dL (3.2-5.5); CALCIUM 8.8 mg/dL (8.5-10.3); CREATININE 2.1 mg/dL (0.6-1.2); HGB - HEMOGLOBIN 13.7 g/dL (14.0-18.0); MAGNESIUM 1.7 mg/dL (1.7-2.8); PHOSPHORUS 3.4 mg/dL (2.5-4.6)
== END 2017-10-07 10:39 | disposition home or self-care (01) ==
LOC: LAB.F 10:38
PROVIDERS: ATTEND Internal Medicine Nephrology
DX: I12.9 Hypertensive chronic kidney disease with stage 1 through stage 4 chronic kidney disease, or unspecified chronic kidney disease (principal); N18.4 Chronic kidney disease, stage 4 (severe)
CPT/HCPCS: 36415; 80069; 83735; 83970; 84156; 85014; 85018

== ENCOUNTER 2017-10-20 13:37 | Outpatient (CLI) | payer MEDICARE | END 2017-10-20 13:38 | disposition home or self-care (01) | LOC: LAB.F 13:37 | PROVIDERS: ATTEND Internal Medicine | DX: I48.2 Chronic atrial fibrillation (principal) | CPT/HCPCS: 85610 ==

== ENCOUNTER 2017-11-10 15:34 | Outpatient (CLI) | payer MEDICARE | END 2017-11-10 15:35 | disposition home or self-care (01) | LOC: LAB.R 15:34 → LAB.F 15:35 | PROVIDERS: ATTEND Internal Medicine | DX: I48.2 Chronic atrial fibrillation (principal) | CPT/HCPCS: 85610 ==

== ENCOUNTER 2017-12-08 11:04 | Outpatient (CLI) | payer MEDICARE | END 2017-12-08 11:05 | disposition home or self-care (01) | LOC: LAB.F 11:04 | PROVIDERS: ATTEND Internal Medicine | DX: I48.2 Chronic atrial fibrillation (principal) | CPT/HCPCS: 85610 ==

== ENCOUNTER 2017-12-30 15:22 | Outpatient (CLI) | payer MEDICARE | END 2017-12-30 15:23 | disposition home or self-care (01) | LOC: LAB.F 15:22 | PROVIDERS: ATTEND Internal Medicine | DX: I48.2 Chronic atrial fibrillation (principal) | CPT/HCPCS: 85610 ==

== ENCOUNTER 2018-01-28 13:52 | Outpatient (CLI) | payer MEDICARE | END 2018-01-28 13:53 | disposition home or self-care (01) | LOC: LAB.F 13:52 | PROVIDERS: ATTEND Internal Medicine | DX: I48.2 Chronic atrial fibrillation (principal) | CPT/HCPCS: 85610 ==